=== PATIENT | female | born 1980 | race African-American/Black ===

== ENCOUNTER 2019-05-27 21:06 | Emergency (ER) | payer MEDICAID ==
[~2019-05-27] VITALS: Ht 162.6 cm; Wt 130.0 kg
[2019-05-28] MEDS ORDERED: LIDOCAINE HCL/PF 1% 10 MG/ML 5ML VIAL IJ ONE (01:15)
[2019-05-28] MEDS ORDERED: HYDROCODONE/ACETAMINOPHEN 5/325MG TABLET PO ONE (01:15)
[2019-05-28] MEDS ORDERED: TETANUS, DIPHTHERIA, PERTUSSIS VAC/PF 0.5ML (>7YR OLD) IM ONE (01:15)
[2019-05-28 02:14] VITALS: BP 132/80
== END 2019-05-28 02:15 | disposition home or self-care (01) ==
LOC: ER 21:06
DX: S01.112A Laceration without foreign body of left eyelid and periocular area, initial encounter (principal); S61.259A Open bite of unspecified finger without damage to nail, initial encounter; M25.511 Pain in right shoulder; F17.210 Nicotine dependence, cigarettes, uncomplicated; F12.10 Cannabis abuse, uncomplicated; Z88.0 Allergy status to penicillin; Y04.1XXA Assault by human bite, initial encounter; Y04.0XXA Assault by unarmed brawl or fight, initial encounter; Y93.89 Activity, other specified; Y92.89 Other specified places as the place of occurrence of the external cause
CPT/HCPCS: 12013; 90471; 90715; 99283; J3490; Z7610

== ENCOUNTER 2019-06-02 14:19 | Emergency (ER) | payer MEDICAID ==
[~2019-06-02] VITALS: Ht 162.6 cm; Wt 100.0 kg
[2019-06-02 14:34] VITALS: BP 148/89
== END 2019-06-02 17:11 | disposition home or self-care (01) ==
LOC: ER 16:07
DX: Z48.02 Encounter for removal of sutures (principal)
CPT/HCPCS: 99281